=== PATIENT | male | born 1965 | race African-American/Black ===

== ENCOUNTER 2018-10-15 17:58 | Emergency (ER) | payer MEDICARE ==
[~2018-10-15] VITALS: Ht 180.3 cm; Wt 63.6 kg
[2018-10-15 18:01] VITALS: Ht 180.3 cm; Wt 63.6 kg
[2018-10-15] MEDS ORDERED: LISINOPRIL40 MG (18:06)
[2018-10-15] MEDS ORDERED: BAYER CHEWABLE81 MG (18:06)
[2018-10-15] MEDS ORDERED: NORVASC5 MG (18:06)
[2018-10-15] MEDS ORDERED: ZYLOPRIM300 MG (18:07)
[2018-10-15] MEDS ORDERED: AMITRIPTYLINE100 MG (18:08)
[2018-10-15] MEDS ORDERED: HYTRIN1 MG (18:08)
[2018-10-15 20:22] VITALS: BP 127/86
== END 2018-10-15 20:22 | disposition home or self-care (01) ==
LOC: D.ER 17:58
DX: T67.5XXA Heat exhaustion, unspecified, initial encounter (principal); X58.XXXA Exposure to other specified factors, initial encounter; Y93.89 Activity, other specified; Y92.831 Amusement park as the place of occurrence of the external cause; I10 Essential (primary) hypertension